=== PATIENT | female | born 1955 | race Caucasian/White ===

== ENCOUNTER 2021-03-31 10:00 | Emergency (ER) | payer MEDICARE, OTHER ==
[~2021-03-31] VITALS: Ht 157 cm; Wt 138.0 kg
--- NOTE | 2021-03-31 10:31 | Diagnostic Imaging Report ---
INDICATION: Covid. COMPARISON: None. FINDINGS: Single view of the chest demonstrates clear lungs bilaterally. The heart is normal. There is no pneumothorax but osseous structures are normal. IMPRESSION: Negative chest. Dictated by: Dictated on workstation # [id number]
[2021-03-31 10:35] VITALS: BP 136/93
--- NOTE | 2021-03-31 10:45 | ED Cough/URI ---
General Chief Complaint: Cough/Cold/Flu Symptoms Stated Complaint: SOB; COVID+ Nursing Triage Note: PT REPORTS SINUS CONGESTION, SHORTNESS OF BREATH WITH EXERTION AND A DRY COUGH FOR OVER A MONTH. WAS COVID+ February. 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 Patient reports sinus congestion rhinorrhea. She denies shortness of breath wheezing. No chest pain palpitations chest tightness. No increased leg pain or swelling. No other acute symptoms or complaints. Patient last received her Covid vaccination in December 2020. Timing/Duration: just prior to arrival Severity/Quality: productive cough Modifying Factors: Improves With Other Associated Symptoms: other Allergies and Home Medications Allergies Coded Allergies: Sulfa (Sulfonamide Antibiotics) (Verified Allergy, Unknown, 03/31/21) clarithromycin (Verified Allergy, Unknown, 03/31/21) latex (Verified Allergy, Unknown, 03/31/21) Patient Home Medication List Home Medication List Reviewed: Yes Review of Systems Review of Systems Constitutional: see HPI EENTM: see HPI Respiratory: see HPI Cardiovascular: see HPI Gastrointestinal: see HPI Genitourinary: see HPI Musculoskeletal: see HPI Skin: see HPI Psychiatric/Neurological: See HPI Hematologic/Lymphatic: See HPI Immunological/Allergic: see HPI All Other Systems Reviewed Negative Unless Noted: Yes Past Ysuxtbd-Vmaumf-Ivgnbo Hx Patient Social History Tobacco Use?: Yes Tobacco type used: Cigarettes Smoking Status: Former Smoker Use of E-Cig and/or Vaping dev: No Substance use?: No Alcohol Use?: Yes Alcohol Frequency: Once in a while Pt feels they are or have been: No Immunizations Up To Date Influenza Vaccine Up-to-Date: No; Not Current First/Initial COVID19 Vaccinat: 2020 Second COVID19 Vaccination Nate: 2020 COVID19 Vaccine 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 Physical Exam Vital Signs - First Documented 03/31/21 10:09 Temp 35.6 Pulse 82 Resp 20 B/P (MAP) 179/102 (127) Pulse Ox 95 O2 Delivery Room Air Capillary Refill : Less Than 3 Seconds Height: '" Weight: lbs. oz. 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 nml as tested, alert, oriented x 3 Skin: warm/dry Focused Exam Sepsis Stage: Ruled Out Progress/Results/Core Measures Suspected Sepsis SIRS Temperature: Pulse: 78 Respiratory Rate: 20 Blood Pressure 136 /93 Mean: 107 Results/Orders My Orders Orders - BEE BONDS DO Ekg-Prn For Chest Pain Or Rhyt (03/31/21 10:16) Chest 1 View Ap/Pa Only (03/31/21 10:16) Ekg Tracing (03/31/21 10:15) Vital Signs/I&O 03/31/21 03/31/21 10:09 10:35 Temp 35.6 35.6 Pulse 82 78 Resp 20 20 B/P (MAP) 179/102 (127) 136/93 Pulse Ox 95 96 O2 Delivery Room Air Room Air Capillary Refill : Less Than 3 Seconds Blood Pressure Mean: 107 Departure Communication (Admissions) EKG: Rate 76, low voltage, LVH, no acute ST-T wave changes. Chest x-ray: No acute findings per radiology report Symptoms consistent with bronchial pneumonia without respiratory compromise. Vital signs stable. Will treat therapeutically with PCP follow-up. Return precautions reviewed. Patient verbalized understanding agreement discharge instructions prior to departure. Impression Primary Impression: Bronchial pneumonia Disposition: 01 HOME, SELF-CARE Condition: Stable Transfer Method of Transfer: EMS Departure-Patient Inst. Decision time for Depature: 10:47 Referrals: HODAN MONDRAGON MD (PCP/Family) Primary Care Physician Patient Instructions: Pneumonia, Adult ED Add. Discharge Instructions: Please take newly prescribed medications as directed and follow-up with PCP in 7 to 10 days for reevaluation. Return to the ED if new or worsening symptoms. All discharge instructions reviewed with patient and/or family. Voiced understanding. Scripts Benzonatate (TESSALON PERLES) 100 Mg Capsule 100 MG PO TID, #20 CAP Prov: BEE BONDS DO 03/31/21 Doxycycline Hyclate (Doxycycline Hyclate) 100 Mg Tablet. 100 MG PO BID, #20 TAB Prov: BEE BONDS DO 03/31/21 EBE BONDS DO Mar 31, 2021 10:45
[2021-03-31] MEDS ORDERED: DOXY-227 PO (10:48)
[2021-03-31] MEDS ORDERED: BENZ100C18 PO (10:49)
== END 2021-03-31 10:52 | disposition home or self-care (01) ==
LOC: EDUNIT# 10:00 → ER FS 10:02
DX: J18.0 Bronchopneumonia, unspecified organism (principal); I10 Essential (primary) hypertension; Z91.040 Latex allergy status; Z87.891 Personal history of nicotine dependence
CPT/HCPCS: 71045; 93005

== ENCOUNTER → 2021-08-03 | Outpatient (CLI) | payer MEDICARE, OTHER ==
[~2021-08-03] MED LIST: BENZ100C18 PO; DOXY-227 PO
== END ==
LOC: RAD 11:30
PROVIDERS: ATTEND Family Medicine
DX: Z12.31 Encounter for screening mammogram for malignant neoplasm of breast (principal)
CPT/HCPCS: 77063; 77067

== ENCOUNTER → 2021-08-24 | Outpatient (CLI) | payer MEDICARE, OTHER ==
--- NOTE | 2021-08-24 13:55 | Diagnostic Imaging Report ---
Indication: Right breast density. Patient presents for additional views. Unilateral right 2-D and 3-D diagnostic mammography was performed. This included spot compression CC and ML views as well as conventional 90 degrees lateral views. Additional views show some persistent slight nodularity in the slightly medial and slightly upper aspect of the right breast approximately 6 to 7 cm from the nipple. Further evaluation of this area with ultrasound is recommended. No other abnormalities are seen. IMPRESSION: BI-RADS 0 Persistent slight nodularity, as described. Further evaluation with ultrasound is recommended and will be performed today. ACR BI-RADS Category 0: Incomplete. (Needs additional imaging evaluation). Result letter will be mailed to the patient. Note: At least 10% of breast cancer is not imaged by mammography. Dictated by: Dictated on workstation # [id number]
--- NOTE | 2021-08-24 13:57 | Diagnostic Imaging Report ---
Indication: Right breast density. Correlation is made with diagnostic mammogram earlier the same day as well as the screening mammogram from 08/03/2021. Sonographic interrogation from the 12-6 o'clock location of the right breast was performed. No sonographic abnormality is identified. No solid or cystic mass is detected. IMPRESSION: BI-RADS Category 3 No sonographic abnormality is seen. The density noted mammographically may represent fibroglandular tissue. Even so, follow-up right mammogram in 6 months is recommended to show continued ACR BI-RADS Category 3: Probably benign findings. Dictated by: Dictated on workstation # [id number]
== END ==
LOC: RAD 12:45
PROVIDERS: ATTEND Family Medicine
DX: Q83.9 Congenital malformation of breast, unspecified (principal); R92.2 Inconclusive mammogram
CPT/HCPCS: 76642; 77065; G0279

== ENCOUNTER → 2022-02-15 | Outpatient (CLI) | payer MEDICARE, OTHER ==
--- NOTE | 2022-02-15 20:31 | Diagnostic Imaging Report ---
Indication: Six-month follow-up right breast density. Correlation is made with prior mammograms from 08/03/2021 and 12/03/2019. Unilateral right 2-D and 3-D diagnostic mammography was performed. Scattered fibroglandular densities in the right breast are noted. The density noted slightly above the nipple line on the MLO view is stable. This is much less prominent on the CC view and again may represent fibroglandular tissue. No discrete mass is detected. There are occasional benign calcifications. No malignant-appearing microcalcifications are seen. IMPRESSION: BI-RADS Category 2 Stable mammogram with no mammographic features suspicious for malignancy. Patient should return in 6 months for bilateral screening mammography. ACR BI-RADS Category 2: Benign findings. Result letter will be mailed to the patient. Note: At least 10% of breast cancer is not imaged by mammography. Dictated by: Dictated on workstation # [id number]
== END ==
LOC: RAD 13:00
PROVIDERS: ATTEND Nurse Practitioner Family
DX: Q83.9 Congenital malformation of breast, unspecified (principal); R92.2 Inconclusive mammogram
CPT/HCPCS: 77065; G0279

== ENCOUNTER → 2022-09-03 | Outpatient (CLI) | payer MEDICARE, OTHER ==
--- NOTE | 2022-09-06 09:48 | Diagnostic Imaging Report ---
INDICATION: Routine screening. COMPARISON: 08/03/2021. TECHNIQUE: 2D and 3D bilateral screening mammography was performed with CAD. FINDINGS: Scattered fibroglandular densities are identified bilaterally. The parenchymal pattern is stable. No mass or malignant-appearing microcalcifications are seen. The axillae are unremarkable. IMPRESSION: No mammographic features suspicious for malignancy are identified. ACR BI-RADS Category 1: Negative. Result letter will be mailed to the patient. Note: At least 10% of breast cancer is not imaged by mammography. Dictated by: Dictated on workstation # [id number]
== END ==
LOC: RAD 14:58
PROVIDERS: ATTEND Nurse Practitioner Family
DX: Z12.31 Encounter for screening mammogram for malignant neoplasm of breast (principal)
CPT/HCPCS: 77063; 77067